=== PATIENT | male | born 1975 | race American Indian/Alaskan Native ===

== ENCOUNTER 2022-03-14 15:01 | Emergency (ER) | payer SELFPAY ==
[2022-03-14] MEDS ORDERED: diphenhydrAMINE 50 MG/ML VIAL IV ONE (15:26)
[2022-03-14] MEDS ORDERED: SODIUM CHLORIDE 0.9% 1000 ML 1,000 ML IV ONE (15:26)
[2022-03-14] MEDS ORDERED: methylPREDNISolone Sod Succinate 125 MG/2 ML INJ IV ONE (15:26)
[2022-03-14] MEDS ORDERED: FAMOTIDINE 20 MG/2 ML INJ IV ONE (15:27)
[2022-03-14 16:08] LABS: Basophils % (Auto) 0.5 % (0.0-1.8); Eosinophils # (Auto) 0.4 K/mm3 (0.0-0.4); Eosinophils % (Auto) 5.2 % (0.0-4.3); Hematocrit 43.6 % (35.5-45.6); Hemoglobin 14.7 gm/dl (11.8-15.2); Lymphocytes # (Auto) 2.2 K/mm3 (1.2-5.4); Lymphocytes % (Auto) 28.5 % (13.4-35.0); Mean Corpuscular HGB Conc 34 % (32-34); Mean Corpuscular Volume 78 fl (84-94); Monocytes # (Auto) 0.5 K/mm3 (0.0-0.8); Monocytes % (Auto) 6.4 % (0.0-7.3); Platelet Count 341 K/mm3 (140-440); Red Blood Count 5.58 M/mm3 (3.65-5.03); Red Cell Distribution Width 14.7 % (13.2-15.2)
[2022-03-14 16:29] LABS: Alanine Aminotransferase 45 units/L (7-56); Albumin 4.2 g/dL (3.9-5); BUN/Creatinine Ratio 13; Blood Urea Nitrogen 13 mg/dL (9-20); Calcium 9.2 mg/dL (8.4-10.2); Hemolysis Index 6
--- NOTE | 2022-03-14 16:46 | XRay Report ---
CHEST 1 VIEW INDICATION / CLINICAL INFORMATION: Allergic Reaction. COMPARISON: None available. FINDINGS: SUPPORT DEVICES: None. HEART / MEDIASTINUM: No significant abnormality. LUNGS / PLEURA: No significant pulmonary or pleural abnormality. No pneumothorax. ADDITIONAL FINDINGS: No significant additional findings. IMPRESSION: 1. No acute findings. Signer Name: Tay Walker MD Signed: 03/14/2022 4:41 PM Workstation Name: [id number]
--- NOTE | 2022-03-14 16:48 | Emergency Department Report ---
ED General Adult HPI - General Chief complaint: Allergic Reaction Stated complaint: ALLERGIC REACTION Time Seen by Provider: 03/14/22 15:23 Source: patient Mode of arrival: Ambulatory Limitations: No Limitations - History of Present Illness Initial comments: Pt reports allergic reaction to the scalp and face. pt has significant swelling to the scalp and face. pt denies dysphagia or tightness to his throat. + scalp itching. pt reports he has taken about 4 doses of benadyl over the past two days with no relief. pt beleives he is allergic to hair dye that he used 2 days ago. + reaction with hair dye befor -: Gradual, days(s) (2) Location: head, face, eyes Radiation: non-radiation Severity scale (0 -10): 8 Consistency: constant Improves with: none Worsens with: none Associated Symptoms: denies: denies other symptoms, confusion, chest pain, cough, diaphoresis, headaches, loss of appetite, malaise Treatments Prior to Arrival: none - Related Data Previous Rx's Medication Instructions Recorded Last Taken Type Doxycycline Hyclate [Lymepak] 100 mg PO BID #14 03/14/22 Unknown Rx Ketoconazole [Nizoral A-D] 200 ml TP DAILY #120 03/14/22 Unknown Rx hydrOXYzine HCL [Atarax] 25 mg PO Q12H PRN #20 tablet 03/14/22 Unknown Rx methylPREDNISolone [Medrol 4MG 4 mg PO DAILY #1 03/14/22 Unknown Rx DOSEPAK (21 tabs)] Allergies Allergy/AdvReac Type Severity Reaction Status Date / Time hair dye Allergy Swelling Uncoded 03/14/22 15:13 ED Review of Systems ROS: Stated complaint: ALLERGIC REACTION Other details as noted in HPI Constitutional: denies: chills, fever Eyes: denies: eye pain, eye discharge, vision change ENT: denies: ear pain, throat pain Respiratory: denies: cough, shortness of breath, wheezing Cardiovascular: denies: chest pain, palpitations Endocrine: no symptoms reported Gastrointestinal: denies: abdominal pain, nausea, diarrhea Genitourinary: denies: urgency, dysuria Musculoskeletal: denies: back pain, joint swelling, arthralgia Skin: denies: rash, lesions Neurological: denies: headache, weakness, paresthesias Psychiatric: denies: anxiety, depression Hematological/Lymphatic: denies: easy bleeding, easy bruising ED Past Medical Hx - Past Medical History Previous Medical History?: No Hx Hypertension: No - Surgical History Past Surgical History?: No - Social History Smoking Status: Current Every Day Smoker Substance Use Type: None - Medications Home Medications: Home Medications Medication Instructions Recorded Confirmed Last Taken Type Doxycycline Hyclate [Lymepak] 100 mg PO BID #14 03/14/22 Unknown Rx Ketoconazole [Nizoral A-D] 200 ml TP DAILY #120 03/14/22 Unknown Rx hydrOXYzine HCL [Atarax] 25 mg PO Q12H PRN #20 tablet 03/14/22 Unknown Rx methylPREDNISolone [Medrol 4MG 4 mg PO DAILY #1 03/14/22 Unknown Rx DOSEPAK (21 tabs)] ED Physical Exam - General Limitations: No Limitations General appearance: alert - Expanded Head Exam Expanded Head exam: Present: other (swelinga nd periorbital edema ) - Eye Eye exam: Present: normal appearance - ENT ENT exam: Present: mucous membranes moist - Neck Neck exam: Present: normal inspection - Respiratory Respiratory exam: Present: normal lung sounds bilaterally. Absent: respiratory distress - Cardiovascular Cardiovascular Exam: Present: regular rate, normal rhythm. Absent: systolic murmur, diastolic murmur, rubs, gallop - GI/Abdominal GI/Abdominal exam: Present: soft, normal bowel sounds - Rectal Rectal exam: Present: deferred - Extremities Exam Extremities exam: Present: normal inspection - Back Exam Back exam: Present: normal inspection - Neurological Exam Neurological exam: Present: alert, oriented X3 - Psychiatric Psychiatric exam: Present: normal affect, normal mood - Skin Skin exam: Present: warm, dry, intact, normal color. Absent: rash ED Course Vital Signs 03/14/22 03/14/22 15:04 15:41 Temperature 98.7 F Pulse Rate 106 H Respiratory 20 18 Rate Blood Pressure 145/86 [Left] O2 Sat by Pulse 100 98 Oximetry ED Medical Decision Making - Lab Data Result diagrams: 03/14/22 15:40 03/14/22 15:40 - Radiology Data Radiology results: report reviewed, image reviewed - Medical Decision Making work up showed chemcial dermatitis from dye , will d.c dye steriods and anth istamine given Critical care attestation.: If time is entered above; I have spent that time in minutes in the direct care of this critically ill patient, excluding procedure time. ED Disposition Clinical Impression: Chemical dermatitis Disposition: HOME / SELF CARE / HOMELESS Is pt being admited?: No Does the pt Need Aspirin: No Condition: Stable Instructions: Contact Dermatitis, [id number] Prescriptions: hydrOXYzine HCL [Atarax] 25 mg PO Q12H PRN #20 tablet PRN Reason: Itching Doxycycline Hyclate [Lymepak] 100 mg PO BID #14 methylPREDNISolone [Medrol 4MG DOSEPAK (21 tabs)] 4 mg PO DAILY #1 Ketoconazole [Nizoral A-D] 200 ml TP DAILY #120
[2022-03-14 18:52] VITALS: BP 121/77
== END 2022-03-14 18:56 | disposition home or self-care (01) ==
LOC: ED 15:01
DX: L25.9 Unspecified contact dermatitis, unspecified cause (principal); F17.200 Nicotine dependence, unspecified, uncomplicated; Z79.899 Other long term (current) drug therapy
CPT/HCPCS: 36415; 71045; 80053; 85025; 96361; 96374; 96375; 99284; J1200; J2930; J3490; J7030